=== PATIENT | female | born 1955 | race Caucasian/White ===

== ENCOUNTER 2024-06-04 14:49 | Emergency (ER) | payer MEDICARE, OTHER, SELFPAY ==
[2024-06-04 14:52] VITALS: BP 138/81
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
[2024-06-04 19:22] VITALS: BP 152/86
== END 2024-06-04 20:37 | disposition home or self-care (01) ==
LOC: EMR 14:49
PROVIDERS: EMERGENCY PHYSICIAN Student in an Organized Health Care Education/Training Program; FAMILY PHYSICIAN Family Medicine
DX: S16.1XXA Strain of muscle, fascia and tendon at neck level, initial encounter (principal); X50.0XXA Overexertion from strenuous movement or load, initial encounter; I10 Essential (primary) hypertension; Z87.891 Personal history of nicotine dependence; E03.9 Hypothyroidism, unspecified
CPT/HCPCS: 99284; 72040; 76536

== ENCOUNTER → 2024-06-24 10:04 | Outpatient (REF) | payer MEDICARE, OTHER, SELFPAY | LOC: MRI 3T 10:04 | PROVIDERS: ATTENDING PHYSICIAN Family Medicine | DX: R22.1 Localized swelling, mass and lump, neck (principal) | CPT/HCPCS: 70543; A9575 ==

== ENCOUNTER → 2024-10-22 17:44 | Outpatient (REF) | payer MEDICARE, OTHER, SELFPAY | LOC: RAD 17:44 | PROVIDERS: ATTENDING PHYSICIAN Orthopaedic Surgery; FAMILY PHYSICIAN Family Medicine | DX: S22.021A Stable burst fracture of second thoracic vertebra, initial encounter for closed fracture (principal) | CPT/HCPCS: 72128 ==

== ENCOUNTER 2025-01-03 15:36 | Emergency (ER) | payer MEDICARE, OTHER, SELFPAY ==
[2025-01-03 15:53] VITALS: BP 117/56
--- NOTE | 2025-01-03 19:46 | ED.GENMED ---
History of Present Illness
General
Chief Complaint: Foreign Body Ingestion
Source: patient
Exam Limitations: none
Time Seen by Provider: 01/03/25 19:28
Nursing documentation reviewed up to this point in time: agreed with
History of Present Illness
History of Present Illness:
69-year-old female past medical history of hypertension presenting to the emergency department today with concerns of irritation of the right side of her face after using DEET and rubbing her face with a DEET wipe. Called poison control they told
her to rinse her face which she did. She noticed some tingling and numbness to the right side of her face since what prompted her to come to the ER. She noticed some slight swelling to her lip as well. Denies any trouble swallowing or breathing
had some mild nausea but no vomiting or abdominal cramping. No lightheadedness. No wheezing.
Past History
Past History
ED Past Medical History: HTN, Hypothyroidism, Psychiatric (Depression) and Other (OSTEOPOROSIS, Spinal fracture T2, L3, Headaches, Intracranial bleed [place], Right wrist fracture)
ED Past Surgical History: Tonsilectomy and Other (BREAST IMPLANTS, retinal attachment)
Social History
Tobacco: Former smoker
Alcohol: Daily (wine 1-2 glasses)
Drug: None
Personal:
Living: alone
Employment: Employed
Family History
Family History: Other (Brother with cerebral aneurysm)
Review of Systems
Review of Systems
Allergies reviewed?: Yes
All Other Systems: ROS reviewed and negative except as documented in HPI and ROS
Phy Exam
Physical Exam
Physical Exam:
GENERAL: Alert , in no apparent distress
EYE: pupils equal and reactive
NECK: Supple, no significant adenopathy.
ENT: Slight swelling to the right side of face with a bug bite just below the right eye. o/p clr, mmm.
CARDIAC: Regular rate and rhythm .
LUNGS: Clear breath sounds bilaterally, no acute respiratory distress, no wheezes/rales/rhonchi
ABDOMEN: Soft, without focal tenderness, no r/g, no cvat
NEUROLOGICAL: Alert and oriented, no focal neuro deficits normal neurologic evaluation of the right side of the face. No facial droop. 5 out of 5 upper and lower extremity strength normal finger-nose [id number]-[id number] able to walk with steady gait
SKIN: Warm and dry, skin intact.
MUSCULOSKELETAL: No edema, well perfused.
PSYCH: Normal and appropriate interaction.
Course
Vital Signs
Initial and Last Documented VS:
Initial Vital Signs
Temp Pulse Resp BP Pulse Ox
98.2 F 71 18 117/56 98
01/03/25 15:53 01/03/25 15:53 01/03/25 15:53 01/03/25 15:53 01/03/25 15:53
Last Documented Vital Signs
Temp Pulse Resp BP Pulse Ox
98.2 F 71 18 117/56 98
01/03/25 15:53 01/03/25 15:53 01/03/25 15:53 01/03/25 15:53 01/03/25 15:53
MDM/Problems Addressed
MDM/Problems Addressed:
69-year-old female presenting to the emergency department today with concerns of a bug bite to the right side of her face now feeling some numbness and tingling to the area. Also used DEET to the area. She claims this was a DEET wipe. Here she is
well-appearing no distress able to swallow and breathe without difficulty. She does have a small amount of swelling where the bug bite is just below the right eye. Normal neurologic evaluation. Very unlikely have significant toxic exposure.
There may be some slight local reaction to the DEET but otherwise is not worsening over multiple hours here. She does appear stable for outpatient treatment return precautions given.
*Pulse Oximetry
SaO2: 98
Oxygen Mode of Delivery: Room air
Patient hypoxic: no (98)
*Critical Care Note
Total Time (30-74mins, 75-104mins- exclusive of procedures): Not Applicable
ED Attending Note
-
Portions of this chart may have been created with voice recognition software.� Occasional wrong word or��sound alike� substitutions may have occurred due to the inherent limitations of voice recognition software.
Discharge Plan
Departure
Patient Disposition: Home (Routine Discharge)
Date of Disposition: 01/03/25
Time of Disposition: 19:49
Patient with high blood pressure during this ER visit?: No
Condition: Good
Covid-19: Not Applicable
Discharge Problem:
Chemical exposure
Prescriptions:
No Action
levothyroxine 100 MCG tablet
100 mcg PO DAILY
citalopram 20 MG tablet
20 mg PO DAILY
atenolol 25 MG tablet
25 mg PO BID
amlodipine 2.5 MG tablet
2.5 mg PO HS
losartan 25 MG tablet
25 mg PO BID
Tylenol
1,000 mg PO .ONE
Activity Restrictions/Additional Instructions:
You came to the emergency department today after an exposure to DEET. Here you had a reassuring assessment. Please keep an eye on this at home and take an antihistamine. If symptoms are worsening please return immediately.
Interventions
Interventions:
*Risk Screen - Suicide Last Done: 01/03/25 15:57
*General Assessment Last Done: 01/03/25 15:57
*Neglect/Abuse Screening Last Done: 01/03/25 15:57
*ED COVID-19 Vaccine History Last Done: 01/03/25 15:57
AH-Lladln-Bxpykbowpz Assessment Last Done: 01/03/25 19:33
ED- Pulmonary Assessment Last Done: 01/03/25 19:33
Discharge Date and Time
Print Language: VIETNAMESE
[2025-01-03 19:58] VITALS: BP 165/68
== END 2025-01-03 20:15 | disposition home or self-care (01) ==
LOC: EMR 15:36
PROVIDERS: EMERGENCY PHYSICIAN Emergency Medicine; FAMILY PHYSICIAN Family Medicine
DX: Z77.098 Contact with and (suspected) exposure to other hazardous, chiefly nonmedicinal, chemicals (principal); R20.2 Paresthesia of skin; I10 Essential (primary) hypertension; E03.9 Hypothyroidism, unspecified; Z87.891 Personal history of nicotine dependence
CPT/HCPCS: 99282